=== PATIENT | female | born 2000 | race Hispanic/Latino ===

== ENCOUNTER 2020-07-10 21:15 | Inpatient (IN) | payer BC, OTHER, SELFPAY ==
[2020-07-10 21:49] VITALS: BMI 26.9
[2020-07-10] MEDS ORDERED: hydrALAZINE 20 MG/ML VIAL SLOW IVP PRN (22:06)
--- NOTE | 2020-07-10 22:07 | PDOC.FPROB ---
FMR OB H&P: HPI - History of Present Illness Chief Complaint: Contractions History of Present Illness: Patient is a at 39.2wks by 10.5wk curtis who presents to L&D for contractions. Patient reports being a 3-4cm on cervical check at her 9am [facility] appointment. Membranes were stripped at that time. At 10am, the patient began experiencing contractions. She says the contractions are consistent and increasing in frequency and intensity. Right now, she reports moderate pain with contractions every 3-5 minutes. She reports loss of mucus membrane plug 1 week. She denies large LOF but notes vaginal leakage over the past 2 days. + FM. She denies vaginal bleeding and vaginal discharge. She reports SOB with contraction but denies headache, vision changes, chest pain, upper abdominal pain and edema. Primary Care Physician: RADHA Jaramillo FMR OB H&P: Current - Care : 2 Para: 1 Gestational age: 39.2 Due date: 07/15/20 Dating Criteria: 10.5wk curtis Course/Complications: Late to care with good dating at [place]. Hx SGA fetus with most recent growth 45.7 % by Hadlock at 35.1wk. Hx 3rd degree laceration, STI and PPD in previous . - OB Labs Blood type: O RH: positive Antibody Screen: negative HIV: negative RPR: negative HepBsAg: negative Rubella: immune Pap Smear: Normal 1 hour gtt: 78 FMR OB H&P: History - Past Medical History PMH: None - OB History OB History: with 3rd degree laceration on 03/31/16. Hx anemia of , STI, and PPD in previous . - TECHNOLOGY CONSULTANT History TECHNOLOGY CONSULTANT History: Menarche at 8 years. Menstruation regular at 28 days, lasting 4 days. Hx STI in past with treatment. - Surgical History Sx History: Bilateral ear tubes - Social History Social History: Denies tobacco, alcohol and drug use. - Family History Family History: Noncontributory FMR OB H&P: Medications - Current Home Medications: Medication Instructions Recorded Confirmed Type Vitamin 1 tablet PO DAILY 07/10/20 07/10/20 History Allergies/Adverse Reactions: Allergies Allergy/AdvReac Type Severity Reaction Status Date / Time No Known Allergies Allergy Verified 07/10/20 21:42 FMR OB H&P: ROS - Review of Systems General: denies: fever/chills, fatigue Eyes: denies: vision changes, double vision ENT: denies: nasal congestion, rhinorrhea Cardiovascular: denies: chest pain, palpitation, edema Respiratory: reports: shortness of breath (with contractions). denies: cough Gastrointestinal: denies: abdominal pain, nausea, vomiting Genitourinary (Female): denies: dysuria, hematuria Musculoskeletal: denies: pain, tenderness Neurologic: denies: syncope Psychological: denies: depression, anxiety FMR OB H&P: Vital Signs - Heart Tones Baseline: 130 Variability: moderate Acceleration: present Deceleration: absent Category: category 1 [place] contractions every: 3-4 min FMR OB H&P: Physical Exam - Physical Exam General: NAD, awake, alert and oriented HEENT: normocephalic and atraumatic, PERRLA Neck: supple, trachea midline Heart: RRR, normal S1/S2 General: CTAB, no respiratory distress Abdomen: gravid, non-tender, bowel sound present Musculoskeletal: normal gait and station, FROM in all four extremities Neurological: cranial nerves II through XII intact Skin: capillary refill <2 seconds, no jaundice Lymphatic: no unusual bruising or bleeding Psychiatric: normal mood and affect - Pelvic Exam Vulva: normal hair distribution, no lesions Deviation from normal: 60/-1 Membranes: Intact Presentation: Cephalic FMR OB H&P: A/P Disposition: Tomas IUP at 39.2 with contractions every 3-4 minutes. -4/60/-1. Reportedly 3-4 in clinic this am -Recheck in 2 hours to assess progression of labor. Anemia of -Stable on multivitamin Hx SGA fetus -Most recent growth 45.7% by Hadlock Hx PPD -Stable. Monitor for mood symptoms Hx late to care Hx STI in previous Hx 3rd degree laceration -Continue routine care Discussion: Date/Time: 07/10/202206 This H&P was discussed with [Murphy] who agree with the above documentation and plan.
[2020-07-11] MEDS ORDERED: Methylergonovine 0.2 MG/ML VIAL IM PRN ×2 (00:24→06:35)
[2020-07-11] MEDS ORDERED: Promethazine HCl 25 MG/ML VIAL IM PRN ×2 (00:24→06:35)
[2020-07-11] MEDS ORDERED: Diphenoxylate HCl/Atropine Tablet PO PRN ×2 (00:24)
[2020-07-11] MEDS ORDERED: NS / Oxytocin 40 units/1000ml 1,000 ML IV PRN (00:24)
[2020-07-11] MEDS ORDERED: Lidocaine 1% (PF) 30 ML VIAL SC PRN (00:24)
[2020-07-11] MEDS ORDERED: Ondansetron PF 4 MG/2 ML Vial IVP PRN ×2 (00:24→06:35)
[2020-07-11] MEDS ORDERED: Ibuprofen 800 MG TAB PO PRN (00:24)
[2020-07-11] MEDS ORDERED: Misoprostol 200 MCG TAB PR PRN (00:24)
[2020-07-11] MEDS ORDERED: Carboprost 250 MCG/ML AMP IM PRN (00:24)
[2020-07-11] MEDS ORDERED: Butorphanol Tartrate 1 MG/ML VIAL SLOW IVP PRN (00:29)
--- NOTE | 2020-07-11 00:30 | PDOC.LDPN ---
Labor & Delivery Progress Note - Subjective Subjective: painful contractions - Objective Vital signs reviewed and normal: yes General: breathing through contractions Uterine fundus: non tender Dilation: 6 Effacement: 100% Station: -1 FHT: category 1, variability present [place] contractions every: 3-4 min Other exam findings: Bulging bag -: Active labor at 39.2wks by 10.5wk sono. -Changed to 6/100/-1 at 2 hour cervical recheck -Cat 1 strip -Will admit patient for labor management Anemia of -Stable on multivitamin Hx SGA fetus -Most recent growth 45.7% by Hadlock Hx PPD -Stable. Monitor for mood symptoms
[2020-07-11] MEDS ORDERED: Butorphanol Tartrate 1 MG/ML VIAL ONE (00:38)
[2020-07-11 00:44] LABS: Hemoglobin 11.8 g/dL (12.0-16.0); Mean Corpuscular HGB CONC 34.1 g/dL (32.0-36.0); Mean Corpuscular Hemoglobin 30.8 pg (27.0-31.0); Mean Corpuscular Volume 90.5 fL (78.0-98.0); Mean Platelet Volume 9.6 fL (7.4-10.4); Platelet Count 179 thou/uL (130-400); RBC Distribution Width 12.9 % (11.5-14.5); Red Blood Cell (RBC) Count 3.84 mill/uL (4.20-5.40)
[2020-07-11] MEDS ORDERED: Lactated Ringer's 1,000 ML IV SCH (00:45)
[2020-07-11 01:23] LABS: HBSAg Index 0.19 S/CO (0-0.99); Hep B Surf Ag Non-Reactive S/CO (NonReactive)
--- NOTE | 2020-07-11 03:36 | PDOC.LDPN ---
Labor & Delivery Progress Note - Subjective Subjective: painful contractions, vaginal pressure - Objective Vital signs reviewed and normal: yes General: breathing through contractions Uterine fundus: non tender Dilation: 9 Effacement: 100% Station: -1 FHT: category 1 (140, + accels, no decels ), variability present [place] contractions every: 2-3 min AROM: bloody fluid Plan: continue plan of care -: Active labor at 39.3wks by 10.5wk sono. -/-1 @ 2200 on 07/10 -/-1 @ 0010 on 07/11 --/1 @ 0300, AROM -Cat 1 strip -Stadol x1 administered for pain management with mild improvement. Does not desire epidural. -Recheck in 1 hour Anemia of -Stable on multivitamin Hx SGA fetus -Most recent growth 45.7% by Hadlock Hx PPD -Stable. Monitor for mood symptoms
--- NOTE | 2020-07-11 06:02 | PDOC.OPDEL ---
OB Operative/Delivery Note - Additional Findings/Plan Compilations/Other Findings: Delivering Physician: Jj/Richard Attending: Dr. Arrington Procedure: Spontaneous Vaginal Delivery Anesthesia: Local for Repair QBL: 86 ml Pre-op Diagnosis: 1. Term intrauterine in labor 2. Late to care 3. Hx SGA 4. Hx PPD 5. Hx STI 6. Hx anemia of Post-op Diagnosis: 1. Term intrauterine , delivered 2. same as above Indications: A 19y/o female presents in active labor Delivery Note: This is 19yo F @ 39.3 wks who delivered a viable M at 0408 on 07/11. Following an uneventful antepartum course, a vigorous M was delivered over an intact perineum in the occipitoanterior position. Anterior Shoulder and then remainder of the body delivered. No nuchal cord. The head was held down and mouth and nares were bulb suctioned. Cord clamped and cut and cord blood collected. Placenta delivered in [place] presentation intact with a 3 vessel cord noted. Fundal massage was performed and the fundus was firm. The cervix and vagina were inspected. 2nd degree perineum laceration noted and repaired with 3-0 chromic in the usual fashion with good approximation and hemostasis after a local anesthetic 2mL lidocine was injected at site. went to nursery in good condition for routine care. Apgars were 8/9 at 1 & 5 minutes, respectively. Patient tolerated delivery well and went to after routine recovery/care. Addendum - Attending - Attending Attestation Date/Time: 07/12/20 [id number] I personally evaluated the patient and discussed the management with Dr. Gardner I agree with the History, Examination, Assessment and Plan documented above with any addition or exceptions noted below. I was present and supervising for the 2nd and 3rd stages of labor.
[2020-07-11] MEDS ORDERED: NS / Oxytocin 40 units/1000ml 1,000 ML IV SCH (06:35)
[2020-07-11] MEDS ORDERED: Misoprostol 200 MCG TAB VAG PRN (06:35)
[2020-07-11] MEDS ORDERED: hydrALAZINE 20 MG/ML VIAL SLOW IVP PRN (06:35)
[2020-07-11] MEDS ORDERED: Bisacodyl 10 MG SUPP PR PRN (06:35)
[2020-07-11] MEDS ORDERED: Adacel (T-DAP) 0.5 ML SYRINGE IM ONE (06:35)
[2020-07-11] MEDS ORDERED: Milk Of Magnesia 30 ML UDCUP PO PRN (06:35)
[2020-07-11] MEDS ORDERED: Ibuprofen 800 MG TAB PO SCH (06:45)
--- NOTE | 2020-07-11 06:49 | PDOC.PP ---
Post Progress Note Post Day #: 0 Subjective: She states that she is doing well. She walked to the bathroom and she has eaten some crackers. She is trying to breastfeed for baby. She complains of pain where she has the sutures when she walks around, but states she is having no pain at rest. She has a moderate amount of lochia with one small clot. PO intake tolerated: yes Flatus: no Ambulation: yes Weight Weight 60.328 kg - Physical Examination General: NAD Cardiovascular: no m/r/g, RRR Respiratory: clear to auscultation bilaterally Abdominal: lochia, appropriately TTP Deviation from normal: Decreased bowel sounds Fundus firm & at: 2 cm below the umbilicus Extremities: negative homans (B) Skin: no rash Perineum: suture site clean, no active bleeding from laceration Neurological: no gross focal deficits Psychiatric: A&Ox3, normal affect Result Diagrams: 07/11/20 00:35 Additional Labs: Post Labs Blood Type O POSITIVE 07/11/20 00:35 Hep Bs Antigen Non-Reactive S/CO (NonReactive) 07/11/20 00:35 (1) Normal vaginal delivery Code(s): O80 - ENCOUNTER FOR FULL-TERM UNCOMPLICATED DELIVERY Status: Acute (2) Second degree perineal laceration during delivery Code(s): O70.1 - SECOND DEGREE PERINEAL LACERATION DURING DELIVERY Status: Acute (3) Anemia affecting , antepartum Code(s): O99.019 - ANEMIA COMPLICATING , UNSPECIFIED TRIMESTER Status : Acute (4) History of depression Code(s): Z87.59 - PERSONAL HISTORY OF COMP OF PREG, CHLDBRTH AND THE PUERP; Z86.59 - PERSONAL HISTORY OF OTHER MENTAL AND BEHAVIORAL DISORDERS Status: Acute (5) Late care Code(s): O09.30 - SUPRVSN OF PREG W INSUFFICIENT ANTENAT CARE, UNSP TRIMESTER Status: Acute - Assessment/Plan 19 yo G2 now P2002 delivered by @ 39.3 wks on 07/11 at 0408. 1. Spontaneous Vaginal Delivery * PPD #0, 2nd Degree Perineal Laceration, No epidural, QBL: 86 * Lochia: moderate with one small clot * BM/Flatus: None * Ambulation: She is walking to the bathroom and back * Eating: She had some crackers this morning * Pain: Recently received Tylenol. She states her pain is fine, except for sutures. Dermoplast ordered 2. Anemia of - Resolved Hgb: 11.8 * Stable on multivitamin 3. Hx SGA fetus * Growth 45.7% by Hadlock * Baby was born TAG[place] 4. Hx Post- Depression * Will monitor for mood symptoms 5. Hx late to care * MD aware 6. Hx STI in previous * MD aware * Testing negative to date for this OBGYN Faculty Note: Aware of plan. Agree with POC. Currently PPDO, possible home tomorrow.
[2020-07-11] MEDS ORDERED: Benzocaine-Menthol 82.5 ML CAN TOP PRN (06:58)
[2020-07-11] MEDS: Docusate Calcium (SURFAK) 240 MG CAP PO SCH ×2 (08:32→21:38)
[2020-07-11] MEDS: Ferrous Sulfate 325 MG TAB PO SCH ×2 (08:32→16:37)
[2020-07-11] MEDS: Prenatal Vitamin 1 TAB PO SCH (08:32)
[2020-07-11 09:31] LABS: Syphilis Antibody Nonreactive (Nonreactive); Syphilis Antibody Index 0.03 S/CO (<1.00 Non-Reactive)
[2020-07-11 12:32] LABS: SARS-CoV-2 MS2 Positive; SARS-CoV-2 N Gene Negative; SARS-CoV-2 S Gene Negative; SARS-CoV-2 by NAA Not Detected (NotDetected); SARS-CoV-2 orf1ab Negative
[2020-07-11] MEDS: Ibuprofen 800 MG TAB PO SCH ×2 (13:25→21:37)
[2020-07-12] MEDS: Ibuprofen 800 MG TAB PO SCH (06:16)
--- NOTE | 2020-07-12 06:39 | PDOC.PP ---
Post Progress Note Post Day #: 1 Subjective: Pt is doing well. She says she is ambulating and tolerating food well. She only has pain with urination now, but it is improved with the Dermoplast and Ibuprofen. She has been working with and has been able to pump and feed from the breast. She says the bleeding is greatly reduced now and she has had no clots. She denies any headache, edema, or SOB. She has not had a bowel movement or passed gas yet. PO intake tolerated: yes Ambulation: yes Vital Signs (12 hours) Temp Pulse Resp BP Pulse Ox 07/12/20 00:24 98.4 F 94 16 110/68 07/11/20 20:21 98.5 F 81 16 99/55 L 97 Weight Weight 60.328 kg - Physical Examination General: NAD Cardiovascular: no m/r/g, RRR Respiratory: clear to auscultation bilaterally Abdominal: + bowel sounds, lochia, no distention, appropriately TTP Extremities: negative homans (B) Skin: no rash Neurological: no gross focal deficits Psychiatric: A&Ox3, normal affect Result Diagrams: 07/11/20 00:35 Additional Labs: Post Labs Blood Type O POSITIVE 07/11/20 00:35 Hep Bs Antigen Non-Reactive S/CO (NonReactive) 07/11/20 00:35 (1) Normal vaginal delivery Code(s): O80 - ENCOUNTER FOR FULL-TERM UNCOMPLICATED DELIVERY Status: Acute (2) Second degree perineal laceration during delivery Code(s): O70.1 - SECOND DEGREE PERINEAL LACERATION DURING DELIVERY Status: Acute (3) Anemia affecting , antepartum Code(s): O99.019 - ANEMIA COMPLICATING , UNSPECIFIED TRIMESTER Status : Acute (4) History of depression Code(s): Z87.59 - PERSONAL HISTORY OF COMP OF PREG, CHLDBRTH AND THE PUERP; Z86.59 - PERSONAL HISTORY OF OTHER MENTAL AND BEHAVIORAL DISORDERS Status: Acute (5) Late care Code(s): O09.30 - SUPRVSN OF PREG W INSUFFICIENT ANTENAT CARE, UNSP TRIMESTER Status: Acute - Assessment/Plan 19 yo G2 now P2002 delivered by @ 39.3 wks on 07/11 at 0408. 1. Spontaneous Vaginal Delivery * PPD #1, 2nd Degree Perineal Laceration, No epidural, QBL: 86 * Lochia: moderate yesterday now minimal without clots * BM/Flatus: None * Ambulation: She is able to ambulate well. * Eating: She is tolerating foods well * Pain: Well controlled with Ibuprofen & Dermoplast. * consult placed yesterday, due to no in first . 2. Anemia of - Resolved Hgb: 11.8 * Stable on multivitamin * Will discontinue Ferrous Sulfate 3. Hx SGA fetus * Growth 45.7% by Hadlock * Baby was born TAG[place] 4. Hx Post- Depression * No signs or symptoms * Will monitor 5. Hx late to care * MD aware * Case management consulted for baby 6. Hx STI in previous * aware * Testing negative to date for this
--- NOTE | 2020-07-12 08:03 | PDOC.BPN ---
- Brief Progress Note Patient seen at bedside. Eval done. Vitals seen. OK for DSCH. Please see full resident note.
[2020-07-12] MEDS: Ferrous Sulfate 325 MG TAB PO SCH (08:08)
[2020-07-12] MEDS: Prenatal Vitamin 1 TAB PO SCH (08:12)
[2020-07-12] MEDS: Docusate Calcium (SURFAK) 240 MG CAP PO SCH (08:13)
[2020-07-12 11:58] VITALS: BP 107/56; TEMP 99.1
== END 2020-07-12 14:00 | disposition home or self-care (01) | DRG 807 ==
LOC: L&D/OP 21:15 → L&D 07-11 00:28 → 3SE 07-11 08:24
PROVIDERS: ADMIT Family Medicine; ATTEND Family Medicine
PROC: 10E0XZZ Delivery of Products of Conception, External Approach (ICD-10-PCS; principal; 2020-07-11)
PROC: 0KQM0ZZ Repair Perineum Muscle, Open Approach (ICD-10-PCS; 2020-07-11)
DX: O99.02 Anemia complicating childbirth (principal); Z37.0 Single live birth; Z20.828 Contact with and (suspected) exposure to other viral communicable diseases; D64.9 Anemia, unspecified; O70.1 Second degree perineal laceration during delivery; Z3A.39 39 weeks gestation of pregnancy
CPT/HCPCS: 36415; 85027; 86780; 86850; 86900; 86901; 87340; 87635; 99285; J0595; U0003